=== PATIENT | male | born 1980 ===

== ENCOUNTER 2023-09-26 07:15 | Day surgery (SDC) | payer OTHER ==
[2023-09-24 11:08] LABS: PH,URINE 6.5 (5.0-8.0); URINE APPEARANCE Clear; URINE BILIRRUBIN Negative (NEGATIVE); URINE BLOOD Negative; URINE COLOR Yellow; URINE GLUCOSE Negative (NEGATIVE); URINE LEUKOCYTE Negative; URINE NITRATE Negative; URINE PROTEIN Negative (NEGATIVE)
[2023-09-24 11:09] LABS: URINE EPITHELIAL CELLS 2.3 uL (0.0-38.8); URINE WBC 2.3 uL (0.0-23.2)
[2023-09-24 11:15] LABS: HEMATOCRIT 46.8 % (39.0-48.0); HEMOGLOBIN 16.4 g/dL (13-16.00); MEAN CELL VOLUME 91.5 fL (80.0-100.00); MEAN CORPUSCULAR HEMOGLOBIN 32.1 pg (27.00-32.0); PLATELET COUNT 244 K/uL (150-450); RED BLOOD COUNT 5.12 M/uL (4.00-6.00); RED CELL DISTRIBUTION WIDTH 12.9 % (11.5-14.5)
[2023-09-24 11:26] LABS: INR 1.07; PARTIAL THROMBOPLASTIN TIME 33.9 SECONDS (22.0-34.0); PROTHROMBIN TIME 11.2 SECONDS (9.0-11.5)
[2023-09-24 11:33] LABS: ALBUMIN 4.4 gm/dL (3.4-5.0); BILIRUBIN TOTAL 0.58 mg/dL (0.3-1.2); CALCIUM 9.5 mg/dL (8.5-10.1); CREATININE SERUM 0.9 mg/dL (0.70-1.30); GFR 92.1; GLOBULINA 3.6 G/DL (2.4-3.5); POTASSIUM 4.35 mEq/L (3.5-5.1)
[2023-09-26] MEDS ORDERED: CEFAZOLIN SODIUM 1,000 MG VIAL ONE (07:51)
[2023-09-26] MEDS ORDERED: BUPIVACAINE HCL/PF 0.5% 30ML ML ONE (07:58)
[2023-09-26] MEDS ORDERED: LIDOCAINE HCL/EPINEPHRINE 10MG/ML 1% 50ML IJ ONE (07:58)
[2023-09-26] MEDS ORDERED: CEFAZOLIN SODIUM 1,000 MG VIAL IV ONE (09:00)
[2023-09-26] MEDS ORDERED: BUPIVACAINE HCL/PF 0.5% 30ML ML IJ ONE (09:15)
[2023-09-26] MEDS ORDERED: KETOROLAC TROMETHAMINE 30 MG VIAL ONE (09:39)
[2023-09-26] MEDS ORDERED: MIRALAX17 GM PO (10:02)
[2023-09-26] MEDS ORDERED: KETO10TA2 PO (10:02)
[2023-09-26] MEDS ORDERED: TYLENOL ARTHRI650 MG PO (10:02)
[2023-09-26] MEDS ORDERED: TRAMADOL HCL50 MG PO (10:02)
[2023-09-26] MEDS ORDERED: KETOROLAC TROMETHAMINE 30 MG VIAL IU ONE (10:15)
== END 2023-09-26 12:40 | disposition home or self-care (01) ==
LOC: CIR.AMB 07:15
PROVIDERS: ATTEND Surgery
DX: K40.90 Unilateral inguinal hernia, without obstruction or gangrene, not specified as recurrent (principal); I10 Essential (primary) hypertension
CPT/HCPCS: 49650; C1781